=== PATIENT | female | born 1945 | race African-American/Black ===

== ENCOUNTER 2016-10-03 23:26 | Emergency (ER) | payer OTHER ==
--- NOTE | 2016-10-03 23:45 | ED EKG INTERP ---
EKG Interpretation - EKG Time of EKG reading by physician:: 23:45 EKG Read and Signed by:: Radha Oh Jr EKG Interpretation (*Must complete 3 of following elements*): Abnormal ( Inferior infarct, age undetermined) Rate: 96 Rhythm: Normal sinus rhythm Attestation - Scribe Verification/Attestation Scribe:: Brody Ulloa Acting as Scribe for:: Radha Oh Jr Scribe documention review:: This chart was documented by a scribe and accurately reflects the service the provider performed and the decisions made by the provider.
[2016-10-04 00:26] LABS: MANUAL DIFF NEEDED? NO
[2016-10-04 00:28] LABS: URINE MICRO REVIEW NEEDED? NO; URINE SOURCE CLEAN CATCH
[2016-10-04 00:29] LABS: BASO% 0.2 % (0.0-0.8); EOS# 0.15 X1000 (0.0-0.7); EOS% 1.5 % (0.0-10.0); HEMATOCRIT 40.1 % (37.0-47.0); HEMOGLOBIN 12.5 g/dL (12.0-16.0); IMM GRAN# 0.04 X1000 (0.0-0.04); IMM GRAN% 0.4 % (0.0-0.5); LYMPH# 3.81 X1000 (1.2-3.4); LYMPH% 36.9 % (20.5-51.1); MCH 24.4 PG (27-31); MCHC 31.2 g/dL (33-37); MCV 78.3 FL (81-99); MONO# 0.74 X1000 (0.11-0.59); MONO% 7.2 % (1.7-9.3); MPV 12.4 FL (7.4-10.4); NEUT% 53.8 % (42.2-75.2); PLT 298 X1000 (130-400); RBC 5.12 XMIL (4.2-5.4)
[2016-10-04 00:33] LABS: BILIRUBIN URINE NEGATIVE (NEGATIVE); BLOOD URINE NEGATIVE (NEGATIVE); COLOR YELLOW; GLUCOSE URINE NEGATIVE (NEGATIVE); LEUKOCYTES URINE MODERATE (NEGATIVE); NITRITE URINE NEGATIVE (NEGATIVE); PH URINE 5.5; PROTEIN URINE NEGATIVE (NEGATIVE); SP GRAVITY URINE 1.023; TURBIDITY URINE CLEAR (CLEAR); UROBILINOGEN URINE 2 mg/dL (NORMAL)
[2016-10-04 00:34] LABS: UR EPITHELIAL CELLS <10 /HPF (<10); URINE BACTERIA NEGATIVE /HPF; URINE CULTURE NEEDED? YES; URINE RBC <10 /HPF (<10); URINE WBC <10 /HPF (<10)
[2016-10-04] MEDS ORDERED: G.I. COCKTAIL PO ONE ×2 (00:39→03:23)
[2016-10-04] MEDS ORDERED: ROCEPHIN IM ONE (00:39)
[2016-10-04] MEDS ORDERED: XYLOCAINE-MPF 1% INJ ONE (00:39)
[2016-10-04 00:44] LABS: AGAP 12; ALBUMIN 3.8 g/dL (3.5-5.0); ALKALINE PHOSPHATASE 101 U/L (32-104); AMYLASE 89 U/L (20-200); BUN 14 mg/dL (8-22); CALCIUM 9.5 mg/dL (8.8-10.2); CHLORIDE 106 mmol/L (98-107); CK PROFILE 103 U/L (24-173); COSMO 290; GOT 15 U/L (10-30); GPT 12 U/L (10-36); LIPASE 32 U/L (13-60); POTASSIUM 3.7 mmol/L (3.5-5.1); SODIUM 145 mmol/L (136-145); TCO2 27 mmol/L (25-35); TOTAL BILIRUBIN 0.23 mg/dL (0.20-1.00); TOTAL PROTEIN 7.2 g/dL (6.3-8.3)
--- NOTE | 2016-10-04 00:59 | PROVIDER DOCUMENTATION ---
HPI-Abdominal Pain/GI Problem <Celeste Loya - Last Filed: 10/04/16 01:50> - General Source: patient - History of Present Illness-ABD Nature of Presenting Problems: Pt is a 71 yof who presents to ER with CC of epigastric/chest pain that started at 1300 today while pt was at rest. Pt denies sob, N/V, diaphoresis, and reports that she does have a fatty diet. Pt reports hx of HTN, hyperlipidemia, and CHF. No further complaints. Abdominal Pain Onset Location: reports: epigastric Pain Radiation: reports: no radiation Quality of Pain: reports: aching, cramping Severity in ED: reports: mild Onset/Duration: reports: this afternoon (1300) Timing: reports: still present Activities at Onset: reports: rest Modifying Factors: worse with: palpation Associated Symptoms: reports: chest pain. denies: arm pain, back/neck pain, EENT symptoms, fatigue, fever/chills, genitourinary problems, headaches, nausea , shortness of breath, syncope, vomiting, weakness, trouble walking Last BM: unsure Dark Stools Present?: reports: none noticed Rectal Bleeding: reports: none Rectal Pain: reports: none Emesis Description: reports: none <Brody Ulloa - Last Filed: 10/04/16 02:50> <Radha Oh Jr - Last Filed: 10/04/16 03:32> - General Chief Complaint: Epigastric Pain Stated Complaint: CP Time Seen by Provider: 10/04/16 00:09 Allergies/Adverse Reactions: Patient Allergies Allergy/AdvReac Type Severity Reaction Status Date / Time meloxicam [From Mob] Allergy Mild RASH Verified 07/17/16 19:08 Home Medications: Home Medication List Medication Instructions Recorded Confirmed Last Taken Type Metformin HCl [Metformin HCl ER] 500 mg PO BID 03/27/13 10/04/16 10/04/16 History SIMVAstatin [Zocor] 20 mg PO DAILY 03/27/13 10/04/16 10/04/16 History Aspirin EC 325 mg PO DAILY #0 tablet 03/30/13 10/04/16 10/04/16 Rx Furosemide [Lasix] 20 mg PO QAM #30 tablet 03/30/13 10/04/16 10/04/16 Rx Spironolactone [Aldactone] 25 mg PO QAM #0 tablet 03/30/13 10/04/16 10/04/16 Rx Carvedilol [Coreg] 12.5 mg PO BID 12/17/14 10/04/16 10/04/16 History Losartan [Cozaar] 50 mg PO DAILY 07/05/16 10/04/16 10/04/16 History Pantoprazole [Protonix] 40 mg PO DAILY@0700 #30 tablet 10/04/16 Unknown Rx Review of Systems - Adult - REVIEW OF SYSTEMS - ADULT Constitutional: denies: chills, fever, fatique, night sweats Eyes: reports: no symptoms reported Ears, Nose, Mouth & Throat: reports: no symptoms reported Cardiovascular: reports: chest pain. denies: edema, heart murmur, irregular heart rate, orthopnea, palpitations, poor circulation, PND, syncope Respiratory: denies: chronic cough, cough, dyspnea on exertion, excessive sputum production, hemoptysis, pleurisy, shortness of breath, wheezing Gastrointestinal: reports: other (is on fatty diet). denies: abdominal pain, hematemesis, constipation, diarrhea, difficulty swallowing, frequent heartburn, nausea, poor appetite, rectal bleeding, vomiting Genitourinary: reports: no symptoms reported Musculoskeletal: reports: no symptoms reported Integumentary: reports: no symptoms reported Neurological: reports: no symptoms reported Psychiatric: reports: no symptoms reported Endocrine: reports: no symptoms reported Hematologic/Lymphatic: reports: no symptoms reported Allergic/Immunologic: reports: no symptoms reported All Other Systems: Reviewed and Negative <Brody Ulloa - Last Filed: 10/04/16 02:50> Past History - Adult - PAST MEDICAL HISTORY-ADULT Review of Records: reports: Old Records Reviewed, Nursing Assessment Review, Medications Reviewed, Social history reviewed & non-contributory. Major Childhood Illnesses: reports: denies history Cardiovascular: reports: CHF, HTN, hyperlipidemia Respiratory: reports: denies history Gastrointestinal: reports: GERD Obstetrical/Gynecological: reports: denies history Genitourinary: reports: denies history Musculoskeletal: reports: denies history Neurological: reports: denies history Endocrine/Immune: reports: Diabetes Other Conditions: reports: denies history - PRIOR SURGERIES/PROCEDURES Surgical/Procedure History: reports: reviewed, not pertinent - FAMILY HISTORY Family History: reviewed, not pertinent <Celeste Loya Last Filed: 10/04/16 01:50> - PAST MEDICAL HISTORY-ADULT Review of Records: reports: Nursing Assessment Review, Medications Reviewed Cardiovascular: reports: HTN, hyperlipidemia - IMMUNIZATION STATUS Childhood Immunizations: See Nurse Assessment Flu Vaccine: See Nurse Assessment <Brody Ulloa - Last Filed: 10/04/16 02:50> Physical Exam-General - PHYSICAL EXAM-ADULT Initial Vital Signs Reviewed: Yes - CONSTITUTIONAL General Appearance: appears well, alert, mild distress. negative: no apparent distress, moderate distress, severe distress, cachetic, obese, thin, anxious, lethargic, slow to respond, obtunded, combative - HEAD, EARS, NOSE, MOUTH & THROAT HENMT: normocephalic/atraumatic, moist mucous membranes, normal ENT inspection, TMs normal, pharynx normal. negative: pharyngeal erythema, tonsillar exudate, TM abnormal - NECK Neck: non-tender, full range of motion, supple. negative: C-spine tenderness, limited range of motion, lymphadenopathy - RESPIRATORY Respiratory: chest non-tender, lungs clear, normal breath sounds. negative: respiratory distress, decreased breath sounds, accessory muscle use, crackles, rales, rhonchi, wheezing - CARDIOVASCULAR Cardiovascular: normal peripheral pulses, regular rate, rhythm. negative: bradycardia, tachycardia - CHEST (BREASTS) Chest/Breast: no masses/lumps, tenderness (reproducible on palpation). negative : no tenderness - GASTROINTESTINAL (ABDOMEN) Abdominal Exam: normal bowel sounds, non tender, soft. negative: abnormal bowel sounds, distended, guarding, rigid, rebound, tenderness, mass - LYMPHATIC Lymphatic: no adenopathy. negative: axilla node tender, cervical node tenderness, inguinal node tender - MUSCULOSKELETAL Back Exam: no CVA tenderness, no vertebral tenderness. negative: CVA tenderness , decreased range of motion, muscle spasm, swelling, vertebral tenderness Extremity: normal range of motion, non-tender, normal gait. negative: deformity , erythema, inflammation, pedal edema, slow capillary refill, swelling, tenderness - SKIN Integumentary: normal color, normal turgor, warm/dry. negative: abrasion(s), ecchymosis, erythema, laceration(s), tenderness - NEUROLOGIC Neurologic: grossly normal, no motor/sensory deficits. negative: facial droop, focal weakness, motor weakness, sensory deficit - PSYCHIATRIC Psych/Mental Status: normal mood/affect, normal thought content, normal thought process, oriented x 3 <Brody Ulloa - Last Filed: 10/04/16 02:50> Progress - CHANGE OF SHIFT REPORT (ED Provider) Report Given and Care Transferred to:: Dr. Oh Time of Transfer: 01:50 Items Pending: Labs Tentative Impression of Patient: stable <Celeste Loya - Last Filed: 10/04/16 01:50> - PLAN OF CARE/RESULTS Progress/Plan/Lab Results: Vital Signs - 24 hr 10/03/16 23:41 Temperature 98.0 F Pulse Rate 92 H Respiratory 18 Rate Blood Pressure 151/67 O2 Sat by Pulse 98 Oximetry Orders Category Date Time Status AMYLASE [CHEM] Stat Lab 10/04/16 00:10 Completed CBC WITH ELECTRONIC DIFF [HEME] Stat Lab 10/04/16 00:10 Completed CK PROFILE [SP CHEM] Stat Lab 10/04/16 00:10 Completed CK PROFILE [SP CHEM] Stat Lab 10/04/16 02:10 Received COMPREHENSIVE METABOLIC PANEL [CHEM] Stat Lab 10/04/16 00:10 Completed LIPASE [CHEM] Stat Lab 10/04/16 00:10 Completed TROPONIN T Stat Lab 10/04/16 00:10 Completed TROPONIN T Stat Lab 10/04/16 02:10 Completed UA NIMS W/REFLEX CULT [URINALYSIS] Stat Lab 10/04/16 00:27 Completed URINE CULTURE [RM] Routine Lab 10/04/16 00:41 Received CefTRIAXONE [Rocephin] Med 10/04/16 00:39 Discontinued 1 gm IM NOW ONE Lido/Mitchell Alk/Al&mg Hydrox [G.i. Cocktail] Med 10/04/16 00:39 Discontinued 30 ml PO NOW ONE Lidocaine 1% Pf [Xylocaine-Mpf 1%] Med 10/04/16 00:39 Discontinued 5 ml INJ NOW ONE EKG [EKG] Stat Ther 10/03/16 23:31 Ordered EKG [EKG] Stat Ther 10/04/16 01:09 Ordered Laboratory Tests 10/04/16 10/04/16 10/04/16 00:10 00:10 00:10 WBC 10.32 RBC 5.12 Hgb 12.5 Hct 40.1 MCV 78.3 L MCH 24.4 L MCHC 31.2 L RDW Std Deviation 16.5 H Plt Count 298 MPV 12.4 H Immature Gran % (Auto) 0.4 Neut % (Auto) 53.8 Lymph % (Auto) 36.9 [place] % (Auto) 7.2 Eos % (Auto) 1.5 Baso % (Auto) 0.2 Immature Gran # (Auto) 0.04 Neut # (Auto) 5.56 Lymph # (Auto) 3.81 H [place] # (Auto) 0.74 H Eos # (Auto) 0.15 Baso # (Auto) 0.02 Sodium 145 Potassium 3.7 Chloride 106 Carbon Dioxide 27 Anion Gap 12 BUN 14 Creatinine 0.9 Estimated GFR/1.73 m2 > 60 BUN/Creatinine Ratio 16 Glucose 114 H Calculated Osmolality 290 Calcium 9.5 Total Bilirubin 0.23 AST 15 ALT 12 Alkaline Phosphatase 101 Creatine Kinase 103 Troponin T < 0.010 Total Protein 7.2 Albumin 3.8 Globulin 3.4 Albumin/Globulin Ratio 1.1 Amylase 89 Lipase 32 Urine Source Urine Color Urine Turbidity Urine pH Ur Specific [place] Urine Protein Ur Glucose (Stick) Ur Ketones (Stick) Urine Blood Urine Nitrite Urine Bilirubin Urobilinogen Dipstick Urine Leukocytes Urine WBC (Auto) Urine RBC (Auto) U Epithel Cells (Auto) Urine Bacteria (Auto) 10/04/16 10/04/16 00:27 02:10 WBC RBC Hgb Hct MCV MCH MCHC RDW Std Deviation Plt Count MPV Immature Gran % (Auto) Neut % (Auto) Lymph % (Auto) [place] % (Auto) Eos % (Auto) Baso % (Auto) Immature Gran # (Auto) Neut # (Auto) Lymph # (Auto) [place] # (Auto) Eos # (Auto) Baso # (Auto) Sodium Potassium Chloride Carbon Dioxide Anion Gap BUN Creatinine Estimated GFR/1.73 m2 BUN/Creatinine Ratio Glucose Calculated Osmolality Calcium Total Bilirubin AST ALT Alkaline Phosphatase Creatine Kinase Troponin T < 0.010 Total Protein Albumin Globulin Albumin/Globulin Ratio Amylase Lipase Urine Source CLEAN CATCH Urine Color YELLOW Urine Turbidity CLEAR Urine pH 5.5 Ur Specific [place] 1.023 Urine Protein NEGATIVE Ur Glucose (Stick) NEGATIVE Ur Ketones (Stick) NEGATIVE Urine Blood NEGATIVE Urine Nitrite NEGATIVE Urine Bilirubin NEGATIVE Urobilinogen Dipstick 2 A Urine Leukocytes MODERATE A Urine WBC (Auto) <10 Urine RBC (Auto) <10 U Epithel Cells (Auto) <10 Urine Bacteria (Auto) NEGATIVE - EKG 1 Time of EKG reading by physician:: 02:05 EKG Read and Signed by:: Radha Oh Jr EKG Interpretation (*Must complete 3 of following elements*): Abnormal ( Nonspecific ST & T wave abnormality) Rate: 84 Rhythm: Sinus rhythm with occasional PVC - CHANGE OF SHIFT REPORT (ED Provider) Report Given and Care Transferred to:: Dr. Oh Time of Transfer: 02:00 Items Pending: Labs <Brody Ulloa - Last Filed: 10/04/16 02:50> - REASSESSMENT Reassessment #1 Time Reassessed: 03:23 (Pt seen and examined. All labs and imaging discussed. Pt reports a longstanding h/o gastric reflux issues. Son agrees with her assessment stating " I told you it was your reflux!" Pt reports no medication for this issue. Pt instructed to follow up with PCP for further workup. ) <Radha Oh Jr - Last Filed: 10/04/16 03:32> Departure <Celeste Loya - Last Filed: 10/04/16 01:50> - Departure Certified Medical Emergency: Emergent <Brody Ulloa - Last Filed: 10/04/16 02:50> - Departure Time of Disposition Order: 03:25 Certified Medical Emergency: Emergent <Radha Oh Jr - Last Filed: 10/04/16 03:32> - Departure DIAGNOSIS: Gastro-esophageal reflux disease without esophagitis Disposition: HOME 01 Condition: Stable Additional Instructions: Pt to follow up with PCP in 1-2 days. ED Follow Up Instructions: You have been treated by a care provider in the Emergency Department. These instructions are being provided to you so you can have an understanding of how to care for yourself upon discharge. Upon discharge from the Emergency Department, you are responsible for making arrangements for follow-up care by a physician of your choice. Take all prescribed medications as directed. Return to the Emergency Department immediately for any new or worsening symptoms. You may call the Physician Referral phone number at [phone] to obtain a list of Physicians who are taking new patients. Prescriptions: Pantoprazole [Protonix] 40 mg PO DAILY@0700 #30 tablet Referrals: Thompson Schmitz MD [Primary Care Provider] - Attestation - Physician/ SAÚL Attestation Patient care was provided by Advanced Practice Provider:: Yes Advanced Practice Provider:: Celeste Loya Advanced Practice Provider documentation review:: The Mid-level provider documentation, treatment plan and medical decision making was reviewed by the physician who agrees with all treatment and medical decision making by the MLP. <Celeste Loya - Last Filed: 10/04/16 01:50> - Scribe Verification/Attestation Scribe:: Brody Ulloa Acting as Scribe for:: Celeste Loya Scribe documention review:: This chart was documented by a scribe and accurately reflects the service the provider performed and the decisions made by the provider. - Scribe Verification/Attestation #2 Shift Change Time: 02:00 Scribe Name: Brody Ulloa Acting as Scribe for:: Radha Oh Jr <Brody Ulloa - Last Filed: 10/04/16 02:50> Physician Attestation
[2016-10-04 03:18] VITALS: BP 132/65
--- NOTE | 2016-10-04 05:36 | EKG Report ---
Test Performed on : 10/04/2016 02:05:11 AM Test Reason : cp Blood Pressure : / mmHG Vent. Rate : 084 BPM Atrial Rate : 084 BPM P-R Int : 186 ms QRS Dur : 088 ms QT Int : 396 ms P-R-T Axes : 037 -08 025 degrees QTc Int : 467 ms Sinus rhythm. with occasional premature ventricular complexes. Nonspecific T wave abnormality Abnormal ECG When compared with ECG of 03-OCT-2016 23:39, (Unconfirmed) premature ventricular complexes. are now present Unconfirmed Result
--- NOTE | 2016-10-04 05:44 | EKG Report ---
Test Performed on : 10/03/2016 11:39:46 PM Test Reason : CP Blood Pressure : / mmHG Vent. Rate : 096 BPM Atrial Rate : 096 BPM P-R Int : 182 ms QRS Dur : 088 ms QT Int : 370 ms P-R-T Axes : 041 -10 038 degrees QTc Int : 467 ms Normal sinus rhythm. Inferior infarct , age undetermined Abnormal ECG When compared with ECG of 29-OCT-2014 13:40, Inferior infarct is now present Unconfirmed Result
== END 2016-10-04 03:38 | disposition home or self-care (01) ==
LOC: ED 23:26
DX: K21.9 Gastro-esophageal reflux disease without esophagitis (principal); R94.31 Abnormal electrocardiogram [ECG] [EKG]; R10.13 Epigastric pain; R07.89 Other chest pain; I10 Essential (primary) hypertension; E78.5 Hyperlipidemia, unspecified; I50.9 Heart failure, unspecified; E11.9 Type 2 diabetes mellitus without complications; Z79.899 Other long term (current) drug therapy; Z79.82 Long term (current) use of aspirin
CPT/HCPCS: 80053; 81001; 82150; 82550; 83690; 84484; 85025; 87088; 93005; J0696